=== PATIENT | female | born 2000 | race African-American/Black ===

== ENCOUNTER 2024-05-30 21:39 | Emergency (ER) | payer OTHER ==
[~2024-05-30] VITALS: Ht 177.8 cm; Wt 68.0 kg
[2024-05-30 22:24] VITALS: O2SAT 100
[2024-05-30] MEDS ORDERED: P50 MT (23:37)
[2024-05-30] MEDS ORDERED: FAMO20TA8 MT (23:38)
[2024-05-30] MEDS: PREDNISONE 20MG TABLET PO ONE (23:45)
[2024-05-30 23:50] VITALS: BP 117/66; PULSE 84; RESP 19; TEMP 36.9; O2SAT 100
== END 2024-05-30 23:51 | disposition home or self-care (01) ==
LOC: ER 21:39
DX: L50.9 Urticaria, unspecified (principal); Z79.899 Other long term (current) drug therapy; Z88.1 Allergy status to other antibiotic agents; Z88.0 Allergy status to penicillin
CPT/HCPCS: 99283; J7512